=== PATIENT | male | born 1975 | race Two or more races ===

== ENCOUNTER 2021-11-13 04:49 | Inpatient (IN) | payer OTHER ==
[~2021-11-13] VITALS: Ht 180.3 cm; Wt 99.7 kg
[2021-11-13] MEDS ORDERED: ONDANSETRON HCL 4 MG/2 ML VIAL IV ONE (05:15)
[2021-11-13] MEDS ORDERED: SODIUM CHLORIDE 0.9% 1,000 ML IV ONE (05:15)
[2021-11-13] MEDS ORDERED: KETOROLAC TROMETH 30 MG/ML 1ML VIAL IV ONE (05:30)
[2021-11-13 05:43] LABS: Basophils # (auto) 0 10 ^3/uL (0-0.2); Basophils % (auto) 0.3 % (0.0-2.0); Eosinophils # (auto) 0 10 ^3/uL (0-0.8); Hematocrit 43.5 % (41.0-53.0); Hemoglobin 14.7 g/dL (13.5-17.5); Lymphocytes # (auto) 0.4 10 ^3/uL (0.4-5.4); Lymphocytes % (auto) 2.6 % (10.0-50.0); Mean Corpuscular Hemoglobin 31.4 pg (28.0-32.0); Mean Corpuscular Hgb Conc. 33.7 g/dL (32.0-36.0); Mean Corpuscular Volume 92.9 fL (80.0-100.0); Monocytes # (auto) 0.6 10 ^3/uL (0-1.3); Monocytes % (auto) 4.6 % (0.0-12.0); Neutrophils # (auto) 12.9 10 ^3/uL (1.6-8.6); Neutrophils % (auto) 92.5 % (37.0-80.0); Nucleated Red Blood Cells % 0.2 %; Red Blood Cells 4.68 10^6/uL (4.5-5.90); Red Cell Distribution Width 15.3 % (11.8-14.3)
[2021-11-13] MEDS ORDERED: SODIUM CHLORIDE 0.9% 3,000 ML IV ONE (05:45)
[2021-11-13] MEDS ORDERED: SODIUM BICARBONATE 8.4 % INJ 50ML VIAL IV ONE (05:45)
[2021-11-13 06:02] LABS: INR 1.05 (0.9-1.15); Partial Thromboplastin Time 27.3 sec (23.6-33.0)
[2021-11-13 06:07] LABS: Albumin 4.3 g/dL (3.4-5.0); Calcium 9.1 mg/dL (8.5-10.1); Magnesium 2.4 mg/dL (1.6-2.6); Potassium 5.1 mmol/L (3.5-5.1)
[2021-11-13 06:11] LABS: BUN/Creatinine Ratio 16.1; Bilirubin, Total 1.4 mg/dL (0.2-1.0); Total Protein 8.9 g/dL (6.4-8.2)
[2021-11-13 06:13] LABS: Urine Bacteria None Seen /hpf (None Seen); Urine WBC None Seen /hpf (0 - 3)
[2021-11-13 07:27] LABS: Urine Specific Gravity 1.021 (1.001-1.035)
[2021-11-13 07:28] LABS: Urine Blood Trace /uL (Negative)
[2021-11-13] MEDS ORDERED: cloNIDine HCL 0.1 MG TAB PO ONE (09:00)
[2021-11-13] MEDS: InsuLIN REG 1unit/0.01ml Soln (100units/ml) IV ONE ×2 (09:45→11:05)
[2021-11-13] MEDS ORDERED: INSULIN LANTUS (GLARGINE) 1 /0.01ml (100units/ml) SC ONE (10:45)
[2021-11-13] MEDS ORDERED: DEXTROSE (50%) 50ML SYRG IV PRN (10:45)
[2021-11-13] MEDS ORDERED: NITROGLYCERIN 0.4 MG SL TAB SL PRN (10:45)
[2021-11-13] MEDS ORDERED: SODIUM CHLORIDE 0.9% 1,000 ML IV SCH ×3 (10:45→16:45)
[2021-11-13 11:55] LABS: Urine Bacteria None Seen /hpf (None Seen); Urine WBC None Seen /hpf (0 - 3)
[2021-11-13 11:59] LABS: Basophils # (auto) 0 10 ^3/uL (0-0.2); Basophils % (auto) 0.3 % (0.0-2.0); Eosinophils # (auto) 0 10 ^3/uL (0-0.8); Hematocrit 42.6 % (41.0-53.0); Hemoglobin 14.1 g/dL (13.5-17.5); Lymphocytes # (auto) 0.4 10 ^3/uL (0.4-5.4); Lymphocytes % (auto) 4.2 % (10.0-50.0); Mean Corpuscular Hemoglobin 30.7 pg (28.0-32.0); Mean Corpuscular Volume 92.9 fL (80.0-100.0); Monocytes # (auto) 0.7 10 ^3/uL (0-1.3); Monocytes % (auto) 6.6 % (0.0-12.0); Neutrophils # (auto) 9.1 10 ^3/uL (1.6-8.6); Neutrophils % (auto) 88.9 % (37.0-80.0); Nucleated Red Blood Cells % 0.1 %; Red Blood Cells 4.59 10^6/uL (4.5-5.90); Red Cell Distribution Width 15.5 % (11.8-14.3); White Blood Cell 10.2 10^3/uL (4.4-10.8)
[2021-11-13 12:39] LABS: BUN/Creatinine Ratio 13.8; Magnesium 2.4 mg/dL (1.6-2.6); Phosphorus 2.8 mg/dL (2.5-4.90); Potassium 4.1 mmol/L (3.5-5.1)
[2021-11-13] MEDS ORDERED: D5W/ SOD CHL 0.9%/KCL 20MEQ 1,000 ML IV PRN (12:45)
[2021-11-13] MEDS ORDERED: SODIUM CHLORIDE 0.9% 2,000 ML IV ONE (12:45)
[2021-11-13] MEDS ORDERED: D5W/SOD CHLO 0.9% 1,000 ML IV PRN ×2 (12:45→20:30)
[2021-11-13] MEDS ORDERED: MORPHINE SULFATE INJECTION 2 MG/ML SYRG IV ONE (13:00)
[2021-11-13] MEDS: ACCU-CHEK COMFORT CURVE STRIP VI SCH ×8 (13:29→22:50)
[2021-11-13 13:31] LABS: Urine Blood Normal /uL (Negative); Urine Specific Gravity 1.023 (1.001-1.035)
[2021-11-13] MEDS ORDERED: PANTOPRAZOLE 40 MG/10 ML VIAL INJ IV ONE (14:45)
[2021-11-13] MEDS ORDERED: cefTRIAXone 1GM/50ML D5W 50 ML IV ONE (14:45)
[2021-11-13] MEDS ORDERED: DOCUSATE SOD 100 MG CAP PO PRN (14:45)
[2021-11-13] MEDS ORDERED: ONDANSETRON HCL 4 MG/2 ML VIAL IV PRN (14:45)
[2021-11-13 14:58] LABS: Magnesium 2.2 mg/dL (1.6-2.6); Phosphorus 2.8 mg/dL (2.5-4.90)
[2021-11-13] MEDS: InsuLIN R (HUMAN) 100 UNITS in SODIUM CHL 0.9% 99 ML IV SCH (15:08)
[2021-11-13 16:32] LABS: BUN/Creatinine Ratio 10.6
[2021-11-13] MEDS: SODIUM CHLORIDE 0.9% 1,000 ML IV SCH ×3 (16:54→22:58)
[2021-11-13 17:16] LABS: INR 1.04 (0.9-1.15); Partial Thromboplastin Time 27.3 sec (23.6-33.0)
[2021-11-13] MEDS: MORPHINE SULFATE INJECTION 2 MG/ML SYRG IV PRN (19:03)
[2021-11-13] MEDS: hydrALAZINE HCL 20 MG/ML VL IV PRN (20:35)
[2021-11-13] MEDS ORDERED: NIFEdipine ER 30 MG TAB PO ONE (21:15)
[2021-11-13] MEDS ORDERED: LABETALOL HCL 5 MG/ML 4ML SYRINGE IV PRN (21:15)
[2021-11-13] MEDS: ATORVASTATIN 20 MG TAB PO SCH (22:03)
[2021-11-13] MEDS: CALCIUM W/VIT D (600MG/400IU) TAB PO SCH (22:04)
[2021-11-13 23:32] LABS: Albumin 3.2 g/dL (3.4-5.0); Potassium 3.5 mmol/L (3.5-5.1)
[2021-11-13 23:34] LABS: BUN/Creatinine Ratio 10.8; Calcium 8.1 mg/dL (8.5-10.1)
[2021-11-13 23:37] LABS: Bilirubin, Total 1.3 mg/dL (0.2-1.0); Total Protein 6.9 g/dL (6.4-8.2)
[2021-11-14] MEDS: ACCU-CHEK COMFORT CURVE STRIP VI SCH ×12 (00:24→22:06)
[2021-11-14] MEDS: SOD CHL 0.9%/ KCL 20MEQ 1,000 ML IV PRN ×2 (00:55→11:50)
[2021-11-14] MEDS: MORPHINE SULFATE INJECTION 2 MG/ML SYRG IV PRN ×4 (01:58→22:08)
[2021-11-14 06:55] LABS: Basophils # (auto) 0 10 ^3/uL (0-0.2); Basophils % (auto) 0.2 % (0.0-2.0); Eosinophils # (auto) 0 10 ^3/uL (0-0.8); Eosinophils % (auto) 0.1 % (0.0-7.0); Hematocrit 38.2 % (41.0-53.0); Hemoglobin 13.5 g/dL (13.5-17.5); Lymphocytes # (auto) 0.7 10 ^3/uL (0.4-5.4); Lymphocytes % (auto) 7.6 % (10.0-50.0); Mean Corpuscular Hgb Conc. 35.3 g/dL (32.0-36.0); Mean Corpuscular Volume 90.6 fL (80.0-100.0); Monocytes # (auto) 0.6 10 ^3/uL (0-1.3); Monocytes % (auto) 6.5 % (0.0-12.0); Neutrophils # (auto) 7.9 10 ^3/uL (1.6-8.6); Neutrophils % (auto) 85.6 % (37.0-80.0); Nucleated Red Blood Cells % 0.1 %; Red Blood Cells 4.21 10^6/uL (4.5-5.90); Red Cell Distribution Width 14.8 % (11.8-14.3); White Blood Cell 9.2 10^3/uL (4.4-10.8)
[2021-11-14 07:11] LABS: INR 1.02 (0.9-1.15); Partial Thromboplastin Time 29.1 sec (23.6-33.0)
[2021-11-14 07:17] LABS: Albumin 3.4 g/dL (3.4-5.0); Potassium 3.5 mmol/L (3.5-5.1)
[2021-11-14 07:28] LABS: Bilirubin, Total 1.8 mg/dL (0.2-1.0); CRP High Sensitivity 8.94 mg/dL (< 0.3); Phosphorus 1.4 mg/dL (2.5-4.90); Total Protein 7.3 g/dL (6.4-8.2)
[2021-11-14] MEDS: SODIUM CHLORIDE 0.9% 1,000 ML IV SCH ×2 (08:07→08:45)
[2021-11-14] MEDS: cefTRIAXone 1GM/50ML D5W 50 ML IV SCH (09:00)
[2021-11-14] MEDS: PANTOPRAZOLE 40 MG/10 ML VIAL INJ IV SCH (10:00)
[2021-11-14] MEDS ORDERED: NIFEdipine ER 30 MG TAB PO SCH (10:00)
[2021-11-14] MEDS: INSULIN LANTUS (GLARGINE) 1 /0.01ml (100units/ml) SC SCH (10:00)
[2021-11-14] MEDS ORDERED: LACTATED RINGER'S 1,000 ML IV ONE (10:00)
[2021-11-14] MEDS: ENOXAPARIN SOD 40 MG/0.4 ML SYRINGE SC SCH (10:28)
[2021-11-14] MEDS: ASPirin 81 mg TAB PO SCH (10:28)
[2021-11-14] MEDS: CALCIUM W/VIT D (600MG/400IU) TAB PO SCH ×2 (10:29→22:05)
[2021-11-14 10:45] LABS: Barbiturate Scree,Urine NEGATIVE (NEGATIVE); Cannabinoid Screen, Urine NEGATIVE (NEGATIVE)
[2021-11-14] MEDS: InsuLIN R (HUMAN) 100 UNITS in SODIUM CHL 0.9% 99 ML IV SCH (10:45)
[2021-11-14 10:47] LABS: Alcohol, Urine < 3.0 mg/dL (0-10); Amphetamine Screen, Urine NEGATIVE (NEGATIVE); Benzodiazephine Screen, Urine NEGATIVE (NEGATIVE); Cocaine Screen, Urine NEGATIVE (NEGATIVE); Opiate Scree,Urine NEGATIVE (NEGATIVE); Phencyclidine Screen, Urine NEGATIVE (NEGATIVE)
[2021-11-14] MEDS ORDERED: SODIUM PHOSPHATES 40 MEQ in D5W 5% 250 ML IV ONE (11:00)
[2021-11-14 11:07] LABS: BUN/Creatinine Ratio 5.9; Calcium 8.8 mg/dL (8.5-10.1); Potassium 3.1 mmol/L (3.5-5.1)
[2021-11-14] MEDS ORDERED: METOPROLOL TARTRATE 1MG/1ML-5ML VIAL IV ONE (14:30)
[2021-11-14] MEDS ORDERED: ERGOCALCIFEROL 50,000 UNIT(1.25MG) CAP PO SCH (14:30)
[2021-11-14] MEDS ORDERED: POTASSIUM CHL 20 Meq TABLET PO ONE ×2 (14:30→17:30)
[2021-11-14] MEDS ORDERED: cloNIDine HCL 0.1 MG TAB PO PRN (14:30)
[2021-11-14 14:57] LABS: Calcium 8.8 mg/dL (8.5-10.1); Potassium 3.8 mmol/L (3.5-5.1)
[2021-11-14] MEDS ORDERED: ACCU-CHEK COMFORT CURVE STRIP VI SCH (16:30)
[2021-11-14] MEDS ORDERED: InsuLIN REG 1unit/0.01ml Soln (100units/ml) SC SCH (16:30)
[2021-11-14 19:23] LABS: BUN/Creatinine Ratio 7.1; Calcium 8.7 mg/dL (8.5-10.1); Potassium 4.3 mmol/L (3.5-5.1)
[2021-11-14 19:44] LABS: Phosphorus 2.3 mg/dL (2.5-4.90)
[2021-11-14] MEDS: InsuLIN REG 1unit/0.01ml Soln (100units/ml) SC SCH ×2 (20:31→22:00)
[2021-11-14 21:57] VITALS: BP 149/100
[2021-11-14] MEDS: ATORVASTATIN 20 MG TAB PO SCH (22:03)
[2021-11-14] MEDS: METOPROLOL TARTRATE 50 MG TAB PO SCH (22:05)
[2021-11-15] VITALS (7 sets, daily range): BP systolic 116–143; BP diastolic 48–97
[2021-11-15] MEDS ORDERED: AMLO-489 PO (00:10)
[2021-11-15] MEDS ORDERED: HYDR-4296 PO (00:10)
[2021-11-15] MEDS ORDERED: INSU100I61 SC (00:10)
[2021-11-15] MEDS ORDERED: INSLANTI SC (00:10)
[2021-11-15] MEDS: InsuLIN REG 1unit/0.01ml Soln (100units/ml) SC SCH ×6 (01:51→22:16)
[2021-11-15] MEDS: ACCU-CHEK COMFORT CURVE STRIP VI SCH ×6 (01:51→22:18)
[2021-11-15] MEDS: MORPHINE SULFATE INJECTION 2 MG/ML SYRG IV PRN ×3 (04:26→17:55)
[2021-11-15 06:22] LABS: Basophils # (auto) 0 10 ^3/uL (0-0.2); Basophils % (auto) 0.1 % (0.0-2.0); Eosinophils # (auto) 0 10 ^3/uL (0-0.8); Eosinophils % (auto) 0.6 % (0.0-7.0); Hematocrit 34.1 % (41.0-53.0); Hemoglobin 12.2 g/dL (13.5-17.5); Mean Corpuscular Hgb Conc. 35.7 g/dL (32.0-36.0); Mean Corpuscular Volume 89.7 fL (80.0-100.0); Monocytes # (auto) 0.6 10 ^3/uL (0-1.3); Monocytes % (auto) 12.3 % (0.0-12.0); Neutrophils # (auto) 3.4 10 ^3/uL (1.6-8.6); Nucleated Red Blood Cells % 0.1 %
[2021-11-15 06:31] LABS: INR 1.04 (0.9-1.15); Partial Thromboplastin Time 27.4 sec (23.6-33.0)
[2021-11-15 06:35] LABS: Potassium 3.3 mmol/L (3.5-5.1)
[2021-11-15 06:57] LABS: Albumin 2.9 g/dL (3.4-5.0); BUN/Creatinine Ratio 12.2; Bilirubin, Total 1.7 mg/dL (0.2-1.0); Calcium 8.9 mg/dL (8.5-10.1); Magnesium 2.1 mg/dL (1.6-2.6); Phosphorus 1.8 mg/dL (2.5-4.90); Total Protein 6.4 g/dL (6.4-8.2)
[2021-11-15] MEDS: cefTRIAXone 1GM/50ML D5W 50 ML IV SCH (08:22)
[2021-11-15] MEDS: PANTOPRAZOLE 40 MG/10 ML VIAL INJ IV SCH (10:10)
[2021-11-15] MEDS: ASPirin 81 mg TAB PO SCH (10:10)
[2021-11-15] MEDS: METOPROLOL TARTRATE 50 MG TAB PO SCH ×2 (10:11→22:11)
[2021-11-15] MEDS: CALCIUM W/VIT D (600MG/400IU) TAB PO SCH ×2 (10:12→22:11)
[2021-11-15] MEDS: ENOXAPARIN SOD 40 MG/0.4 ML SYRINGE SC SCH (10:12)
[2021-11-15] MEDS: HYDROcodone-ACET 5/325MG TAB PO PRN (10:13)
[2021-11-15] MEDS: INSULIN LANTUS (GLARGINE) 1 /0.01ml (100units/ml) SC SCH (10:29)
[2021-11-15] MEDS ORDERED: POTASSIUM CHL 20 Meq TABLET PO ONE (10:30)
[2021-11-15] MEDS: InsuLIN R (HUMAN) 100 UNITS in SODIUM CHL 0.9% 99 ML IV SCH (10:45)
[2021-11-15] MEDS ORDERED: SODIUM CHL 0.9% IV ONE (11:15)
[2021-11-15] MEDS ORDERED: SODIUM PHOSPHATES IV ONE (11:15)
[2021-11-15] MEDS: ATORVASTATIN 20 MG TAB PO SCH (22:10)
[2021-11-16] MEDS: MORPHINE SULFATE INJECTION 2 MG/ML SYRG IV PRN ×4 (00:57→19:02)
[2021-11-16] MEDS: ACCU-CHEK COMFORT CURVE STRIP VI SCH ×6 (02:00→22:06)
[2021-11-16] MEDS: InsuLIN REG 1unit/0.01ml Soln (100units/ml) SC SCH ×6 (02:00→22:00)
[2021-11-16 05:00] VITALS: BP 143/83
[2021-11-16 06:11] LABS: Albumin 2.8 g/dL (3.4-5.0); Calcium 8.7 mg/dL (8.5-10.1); Magnesium 2.2 mg/dL (1.6-2.6)
[2021-11-16 06:15] LABS: Bilirubin, Total 1.1 mg/dL (0.2-1.0); Total Protein 6.1 g/dL (6.4-8.2)
[2021-11-16 08:54] VITALS: BP 145/104
[2021-11-16] MEDS ORDERED: POTASSIUM CHL 20 Meq TABLET PO ONE (09:00)
[2021-11-16] MEDS: ENOXAPARIN SOD 40 MG/0.4 ML SYRINGE SC SCH (09:34)
[2021-11-16] MEDS: cefTRIAXone 1GM/50ML D5W 50 ML IV SCH (09:34)
[2021-11-16] MEDS: PANTOPRAZOLE 40 MG/10 ML VIAL INJ IV SCH (09:34)
[2021-11-16] MEDS: ASPirin 81 mg TAB PO SCH (09:35)
[2021-11-16] MEDS: CALCIUM W/VIT D (600MG/400IU) TAB PO SCH ×2 (09:35→22:33)
[2021-11-16] MEDS: METOPROLOL TARTRATE 50 MG TAB PO SCH ×2 (09:38→22:34)
[2021-11-16] MEDS: INSULIN LANTUS (GLARGINE) 1 /0.01ml (100units/ml) SC SCH (10:30)
[2021-11-16 12:53] VITALS: BP 139/102
[2021-11-16] MEDS ORDERED: INSUINJ37 SC (15:16)
[2021-11-16] MEDS ORDERED: MET50T PO (15:16)
[2021-11-16] MEDS ORDERED: INSU100I61 SC (15:16)
[2021-11-16] MEDS ORDERED: ERGO1CAP23 PO (15:16)
[2021-11-16 16:59] VITALS: BP 139/95
[2021-11-16 22:00] VITALS: BP 138/99
[2021-11-16] MEDS: ATORVASTATIN 20 MG TAB PO SCH (22:35)
[2021-11-17] MEDS: MORPHINE SULFATE INJECTION 2 MG/ML SYRG IV PRN ×4 (01:35→23:05)
[2021-11-17] MEDS: ACCU-CHEK COMFORT CURVE STRIP VI SCH ×6 (01:37→22:06)
[2021-11-17] MEDS: InsuLIN REG 1unit/0.01ml Soln (100units/ml) SC SCH ×6 (01:43→22:07)
[2021-11-17] MEDS: HYDROcodone-ACET 5/325MG TAB PO PRN ×3 (04:47→20:07)
[2021-11-17 05:00] VITALS: BP 133/88
[2021-11-17 07:30] VITALS: BP 142/99
[2021-11-17 09:00] VITALS: BP 142/99
[2021-11-17] MEDS: cefTRIAXone 1GM/50ML D5W 50 ML IV SCH (09:56)
[2021-11-17] MEDS: METOPROLOL TARTRATE 50 MG TAB PO SCH ×2 (09:57→22:04)
[2021-11-17] MEDS: ENOXAPARIN SOD 40 MG/0.4 ML SYRINGE SC SCH (09:58)
[2021-11-17] MEDS: CALCIUM W/VIT D (600MG/400IU) TAB PO SCH ×2 (09:58→22:05)
[2021-11-17] MEDS: ASPirin 81 mg TAB PO SCH (09:58)
[2021-11-17] MEDS: PANTOPRAZOLE 40 MG/10 ML VIAL INJ IV SCH (09:58)
[2021-11-17] MEDS ORDERED: cloNIDine HCL 0.1 MG TAB PO ONE (11:30)
[2021-11-17] MEDS ORDERED: IOHEXOL 300 MG/ML 100ML BOTTLE IJ ONE (11:41)
[2021-11-17 13:00] VITALS: BP 140/99
[2021-11-17 13:23] LABS: Basophils # (auto) 0 10 ^3/uL (0-0.2); Basophils % (auto) 0.7 % (0.0-2.0); Eosinophils # (auto) 0.1 10 ^3/uL (0-0.8); Eosinophils % (auto) 2.1 % (0.0-7.0); Hematocrit 35.3 % (41.0-53.0); Hemoglobin 12.3 g/dL (13.5-17.5); Lymphocytes # (auto) 1.1 10 ^3/uL (0.4-5.4); Mean Corpuscular Hemoglobin 31.6 pg (28.0-32.0); Mean Corpuscular Volume 90.1 fL (80.0-100.0); Monocytes # (auto) 0.5 10 ^3/uL (0-1.3); Monocytes % (auto) 16.7 % (0.0-12.0); Neutrophils # (auto) 1.1 10 ^3/uL (1.6-8.6); Neutrophils % (auto) 40.5 % (37.0-80.0); Nucleated Red Blood Cells % 0.4 %; Red Blood Cells 3.91 10^6/uL (4.5-5.90); Red Cell Distribution Width 14.5 % (11.8-14.3); White Blood Cell 2.8 10^3/uL (4.4-10.8)
[2021-11-17 13:42] LABS: Albumin 2.8 g/dL (3.4-5.0); Calcium 8.8 mg/dL (8.5-10.1); Potassium 3.6 mmol/L (3.5-5.1)
[2021-11-17 13:45] LABS: BUN/Creatinine Ratio 12.7; Bilirubin, Total 0.7 mg/dL (0.2-1.0); Total Protein 6.2 g/dL (6.4-8.2)
[2021-11-17 17:00] VITALS: BP 138/99
[2021-11-17 22:00] VITALS: BP 145/94
[2021-11-18] MEDS: HYDROcodone-ACET 5/325MG TAB PO PRN ×4 (02:11→23:39)
[2021-11-18] MEDS: ACCU-CHEK COMFORT CURVE STRIP VI SCH ×6 (02:14→21:34)
[2021-11-18] MEDS: InsuLIN REG 1unit/0.01ml Soln (100units/ml) SC SCH ×6 (02:20→21:42)
[2021-11-18 05:00] VITALS: BP 139/94
[2021-11-18] MEDS: MORPHINE SULFATE INJECTION 2 MG/ML SYRG IV PRN ×3 (06:02→20:46)
[2021-11-18 08:00] VITALS: BP 159/108
[2021-11-18 09:00] VITALS: BP 159/108
[2021-11-18] MEDS: CALCIUM W/VIT D (600MG/400IU) TAB PO SCH ×2 (09:34→21:34)
[2021-11-18] MEDS: PANTOPRAZOLE 40 MG/10 ML VIAL INJ IV SCH (09:34)
[2021-11-18] MEDS: ASPirin 81 mg TAB PO SCH (09:34)
[2021-11-18] MEDS: cefTRIAXone 1GM/50ML D5W 50 ML IV SCH (09:34)
[2021-11-18] MEDS: hydrALAZINE HCL 20 MG/ML VL IV PRN (09:44)
[2021-11-18] MEDS: METOPROLOL TARTRATE 50 MG TAB PO SCH (09:46)
[2021-11-18 13:00] VITALS: BP 143/99
[2021-11-18 17:00] VITALS: BP 169/108
[2021-11-18 22:00] VITALS: BP 154/107
[2021-11-19] MEDS: ACCU-CHEK COMFORT CURVE STRIP VI SCH ×6 (01:52→22:40)
[2021-11-19] MEDS: InsuLIN REG 1unit/0.01ml Soln (100units/ml) SC SCH ×6 (01:53→22:41)
[2021-11-19] MEDS: hydrALAZINE HCL 20 MG/ML VL IV PRN (02:49)
[2021-11-19] MEDS: MORPHINE SULFATE INJECTION 2 MG/ML SYRG IV PRN ×4 (02:50→22:58)
[2021-11-19 05:00] VITALS: BP 134/84
[2021-11-19] MEDS: HYDROcodone-ACET 5/325MG TAB PO PRN ×3 (05:49→19:22)
[2021-11-19 09:00] VITALS: BP 161/103
[2021-11-19] MEDS: cefTRIAXone 1GM/50ML D5W 50 ML IV SCH (09:15)
[2021-11-19] MEDS: PANTOPRAZOLE 40 MG/10 ML VIAL INJ IV SCH (09:15)
[2021-11-19] MEDS: ASPirin 81 mg TAB PO SCH (09:16)
[2021-11-19] MEDS: hydrALAZINE HCL 25 MG TAB PO SCH (09:16)
[2021-11-19] MEDS: CALCIUM W/VIT D (600MG/400IU) TAB PO SCH ×2 (09:17→22:41)
[2021-11-19] MEDS: amLODIPine BESYLATE 5 MG TAB PO SCH (09:17)
[2021-11-19 13:00] VITALS: BP 149/98
[2021-11-19 17:00] VITALS: BP 147/103
[2021-11-19 22:00] VITALS: BP 157/103
[2021-11-20] MEDS: HYDROcodone-ACET 5/325MG TAB PO PRN ×2 (01:22→07:54)
[2021-11-20] MEDS: ACCU-CHEK COMFORT CURVE STRIP VI SCH ×4 (01:42→14:40)
[2021-11-20] MEDS: InsuLIN REG 1unit/0.01ml Soln (100units/ml) SC SCH ×4 (01:43→15:09)
[2021-11-20 05:00] VITALS: BP 139/81
[2021-11-20] MEDS: MORPHINE SULFATE INJECTION 2 MG/ML SYRG IV PRN ×2 (05:50→12:45)
[2021-11-20] MEDS: cefTRIAXone 1GM/50ML D5W 50 ML IV SCH (07:53)
[2021-11-20 09:00] VITALS: BP 144/94
[2021-11-20] MEDS: PANTOPRAZOLE 40 MG/10 ML VIAL INJ IV SCH (09:58)
[2021-11-20] MEDS: amLODIPine BESYLATE 5 MG TAB PO SCH (09:58)
[2021-11-20] MEDS: ASPirin 81 mg TAB PO SCH (09:58)
[2021-11-20] MEDS: CALCIUM W/VIT D (600MG/400IU) TAB PO SCH (09:58)
[2021-11-20] MEDS: hydrALAZINE HCL 25 MG TAB PO SCH (09:58)
[2021-11-20 12:19] LABS: Hematocrit 34.9 % (41.0-53.0); Hemoglobin 12.2 g/dL (13.5-17.5); Mean Corpuscular Hemoglobin 31.5 pg (28.0-32.0); Mean Corpuscular Volume 89.8 fL (80.0-100.0); Red Blood Cells 3.89 10^6/uL (4.5-5.90); Red Cell Distribution Width 14.8 % (11.8-14.3); White Blood Cell 2.8 10^3/uL (4.4-10.8)
[2021-11-20 12:36] LABS: Basophils % (manual) 0 (0.0-2.0); Blast Cells 0; Eosinophils % (manual) 0 (0-7); Metamyelocytes % 0; Myelocytes % 0; Promyelocytes % 0; Reactive Lymphocytes 0
[2021-11-20 12:48] LABS: Albumin 2.9 g/dL (3.4-5.0); Calcium 8.4 mg/dL (8.5-10.1); Potassium 3.9 mmol/L (3.5-5.1)
[2021-11-20 13:00] VITALS: BP 128/91
[2021-11-20 13:05] LABS: Bilirubin, Total 0.5 mg/dL (0.2-1.0); Total Protein 6.1 g/dL (6.4-8.2)
[2021-11-20 13:15] VITALS: BP 128/91
[2021-11-20 16:49] LABS: Band Neutrophils % (manual) 1; Lymphocytes % (manual) 47 (10.0-50.0); Monocytes % (manual) 21 (0-12)
== END 2021-11-20 16:40 | disposition home or self-care (01) | DRG 438 ==
LOC: EDBD 04:49 → ER 05:04 → TELE 10:44 → TELE-WESTW 11-14 21:25
PROVIDERS: ADMIT Hospitalist; ATTEND Internal Medicine
DX: K85.90 Acute pancreatitis without necrosis or infection, unspecified (principal); E11.10 Type 2 diabetes mellitus with ketoacidosis without coma; K86.1 Other chronic pancreatitis; I10 Essential (primary) hypertension; E55.9 Vitamin D deficiency, unspecified; E66.01 Morbid (severe) obesity due to excess calories; E78.5 Hyperlipidemia, unspecified; K76.0 Fatty (change of) liver, not elsewhere classified; K86.9 Disease of pancreas, unspecified; Z20.822 Contact with and (suspected) exposure to COVID-19; Z79.4 Long term (current) use of insulin; Z83.3 Family history of diabetes mellitus; Z68.30 Body mass index [BMI] 30.0-30.9, adult
CPT/HCPCS: 36415; 36600; 71045; 74176; 74177; 80048; 80053; 80061; 80307; 81001; 82010; 82150; 82306; 82550; 82728; 82805; 82962; 83036; 83605; 83615; 83690; 83735; 83880; 83930; 84100; 84443; 84484; 85007; 85025; 85027; 85379; 85610; 85652; 85730; 86141; 86301; 87040; 87081; 87086; 93005; 96361; 96374; 96375; 99291; C9113; G0378; J0696; J1815; J1885; J2405; J7060